=== PATIENT | female | born 1960 | race Caucasian/White ===

== ENCOUNTER 2023-08-03 18:31 | Emergency (ER) | payer OTHER, SELFPAY ==
[2023-08-03] VITALS (17 sets, daily range): BP systolic 140–196; BP diastolic 72–95; PULSE 53–82; RESP 14–30; TEMP 36.6; O2SAT 96–100; BMI 20.1
--- NOTE | 2023-08-03 18:46 | DI.RAD.S_ITS ---
PROCEDURE: XR CHEST 1V INDICATIONS: chest pain TECHNIQUE: One view of the chest was acquired. COMPARISON: None. FINDINGS: Surgical changes and devices: None. Lungs and pleura: Hyperinflation consistent with COPD. Lungs are clear. No pleural effusions or pneumothorax. Mediastinum: Mediastinal contours appear normal. Heart size is normal. Bones and chest wall: No suspicious bony lesions. Overlying soft tissues appear unremarkable. IMPRESSION: 1. No acute cardiopulmonary disease. 2. COPD. Dictated by: Marci Fernandez M.D. on 08/03/2023 at 19:05 Approved by: Marci Fernandez M.D. on 08/03/2023 at 19:06
[2023-08-03 19:25] LABS: Add Manual Diff / Slide Review NO; Basophils Absolute Auto 100 /uL (0-100); Basophils Percent Auto 0.7 % (0-2); Eosinophils Absolute Auto 500 /uL (0-450); Eosinophils Percent Auto 6.6 % (2-4); Hematocrit 38.8 % (36-46); Hemoglobin 13.2 g/dL (12.0-16.0); Lymphocytes Absolute Auto 2400 /uL (1100-4500); Lymphocytes Percent Auto 32.9 % (25-40); Mean Corpuscular HGB Conc 34.1 % (30-36); Mean Corpuscular Hemoglobin 29.3 PG (26-34); Mean Corpuscular Volume 85.9 fL (80-100); Monocytes Absolute Auto 600 /uL (0-900); Monocytes Percent Auto 8.4 % (3-14); Neutrophils Absolute Auto 3800 /uL (1500-7000); Neutrophils Percent Auto 51.4 % (50-75); Platelet Count 218 X10^3/uL (150-400); Red Blood Cell Count 4.52 X10^6/uL (4.0-5.2); Red Cell Distribution Width 14.3 % (11.6-14.8); White Blood Cell Count 7.4 X10^3/uL (4.5-11.0)
[2023-08-03 19:27] LABS: INR 0.9 (0.9-1.3); Prothrombin Time 10.4 SECONDS (10.1-12.7)
[2023-08-03 19:29] LABS: PTT Partial Thromboplastin Tim 30 SECONDS (26-36)
--- NOTE | 2023-08-03 19:30 | PC.NURSE ---
pt was cooking tonight when she started having chest tightness across her chest pt has had this occur about 2 days before she took some asa and went to sleep then woke with the tightness gone. pt states the tightness has subsided at this time, she took 2 regular strength asa prior to arrival. pt also had some diaphoresis during this episode, denies any sob or radiation, no hx of heart problems, pt does take estrogen 3 times a week
[2023-08-03 19:35] LABS: Alanine Aminotransferase 21 IU/L (<35); Albumin Globulin Ratio 1.3 (1.0-2.8); Alkaline Phosphatase 65 U/L (38-126); Aspartate Aminotransferase 20 IU/L (14-36); BUN Creatinine Ratio 25.4 (6-22); Bilirubin Total 0.4 mg/dL (0.2-1.3); Blood Urea Nitrogen 18 mg/dL (7-17); Calcium 8.5 mg/dL (8.4-10.2); Carbon Dioxide 25 mmol/L (22-32); Chloride 103 mmol/L (98-107); Creatine Kinase 102 U/L (30-135); Estimated Glomerular Filt Rate > 60 mL/min (>60); Globulin 3.1 g/dL (1.7-4.1); Glucose 97 mg/dL (80-110); HEMOLYSIS < 15 (0-50); Lipase 192 U/L (23-300); Magnesium 2.1 mg/dL (1.6-2.3); Potassium 3.5 mmol/L (3.4-5.1); Sodium 136 mmol/L (137-145); Total Protein 7.1 g/dL (6.3-8.2)
--- NOTE | 2023-08-03 19:35 | PC.NURSE ---
EKG changes noted on the monitor, pt denies any cp or feelings of discomfort, repeat EKG ordered and Dr Shafer notified
--- NOTE | 2023-08-03 19:49 | ED_ITS ---
HPI - Chest Pain <Lorelei Shafer DO - Last Filed: 08/06/23 19:18> General Chief Complaint: Chest Pain Stated Complaint: chest pains/ arm pain/ BP 197/121 Time Seen by Provider: 08/03/23 19:49 Source: patient Mode of arrival: Ambulatory Limitations: no limitations Limitations: no limitations History of Present Illness HPI narrative: This is a 62-year-old female history of chest pressure that started about 20 minutes prior to arrival. She states it was across her chest, did not radiate elsewhere. No shortness of breath no nausea or vomiting she was little diaph oretic. She states she would a similar episode 3 or 4 nights ago woke her up in the middle of the night pressure across her chest lasted several hours she took aspirin and it eventually resolved. No syncope. No nausea or vomiting, no diarrhea constipation, no swelling of extremities. She would not been having similar symptoms in the past. She is on Prempro 3 times weekly orally their only medication. Prior surgery years ago for ovarian cyst. No known drug allergies. No tobacco, occasional alcohol, no illicit. Mom had mitral valve prolapse 5 or 6 years ago with repair and atrial fibrillation. No known cardiac events otherwise. No known cardiac history with siblings. Patient states chest pain has resolved at this time. Related Data Allergies Allergy/AdvReac Type Severity Reaction Status Date / Time No Known Drug Allergies Allergy Verified 08/03/23 18:46 Review of Systems <Lorelei Shafer DO - Last Filed: 08/06/23 19:18> Review of Systems ROS Unobtainable: All systems reviewed & are unremarkable except as noted in HPI and below Patient History <Lorelei Shafer DO - Last Filed: 08/06/23 19:18> Social History Smoking Status: Unknown if ever smoked Smoking Status: Unknown if ever smoked alcohol intake frequency: holidays/special occasions only Substance Use Type: does not use Exam <Lorelei Shafer DO - Last Filed: 08/06/23 19:18> Narrative Exam Narrative: GENERAL: Alert and oriented x three, thin, well-appearing female in no acute distress. HEENT: Head normocephalic, atraumatic, EOMI, pupils reactive, face symmetric, moist mucous membranes NECK: Supple, full range of motion CARDIOVASCULAR: Regular rate and rhythm without murmurs, rubs or gallops. No JVD. No swelling bilateral lower extremities. RESPIRATORY: Breath sounds equal bilaterally, no wheezes rales or rhonchi. No tachypnea or accessory muscle use. ABDOMEN: Soft, nontender. Normoactive bowel sounds all 4 quadrants. No guarding or rebound, rigidity, no mass : No CVA tenderness EXTREMITIES: Normal range of motion, no clubbing or edema. Neurovascularly intact NEUROLOGICAL: Cranial nerves II through XII grossly intact. Moving all extremities SKIN: Warm, dry, no petechiae, no rashes or lesions. Initial Vital Signs Initial Vital Signs: Vital Signs Temperature 97.9 F 08/03/23 18:32 Pulse Rate 74 08/03/23 18:32 Respiratory Rate 14 08/03/23 18:32 Blood Pressure 192/93 H 08/03/23 18:32 Pulse Oximetry 99 08/03/23 18:32 Oxygen Delivery Method Room Air 08/03/23 18:32 <Lorelei Mendieta MD - Last Filed: 08/04/23 08:47> Initial Vital Signs Initial Vital Signs: Vital Signs Temperature 97.9 F 08/03/23 18:32 Pulse Rate 74 08/03/23 18:32 Respiratory Rate 14 08/03/23 18:32 Blood Pressure 192/93 H 08/03/23 18:32 Pulse Oximetry 99 08/03/23 18:32 Oxygen Delivery Method Room Air 08/03/23 18:32 Course <Lorelei Shafer DO - Last Filed: 08/06/23 19:18> Orders Ordered: Discontinued Medications Aspirin (Aspirin 81 Mg Chew Tab) 324 mg PO NOW ONE Stop: 08/03/23 18:47 Last Admin: 08/03/23 18:55 Dose: Not Given Documented By: KAT Atorvastatin Calcium (Atorvastatin 20 Mg Tablet) 80 mg PO NOW ONE Stop: 08/03/23 20:18 Last Admin: 08/03/23 20:31 Dose: 80 mg Documented By: DARVIN Heparin Sodium (Porcine) (Heparin 5,000 Unit/Ml Vial) 4,000 unit IV NOW ONE Stop: 08/03/23 19:53 Last Admin: 08/03/23 20:06 Dose: 4,000 unit Documented By: DARVIN Heparin Sodium/Dextrose (Heparin Drip) 25,000 unit in 500 mls @ 20 mls/hr IV CONT REGINO; Protocol Last Admin: 08/03/23 20:19 Dose: Not Given Documented By: KAT Heparin Sodium/Dextrose (Heparin Drip) 25,000 unit in 500 mls @ 13.608 mls/hr IV CONT REGINO; Protocol Last Titration: 08/04/23 09:00 Dose: 0 units/kg/hr, 0 mls/hr Documented By: RB Co-signed By: MPO Admin: 08/03/23 20:20 Dose: 12 units/kg/hr, 13.608 mls/hr Documented By: DARVIN Co-signed By: AYANNA Metoprolol Succinate (Metoprolol Er 25 Mg Tablet) 12.5 mg PO DAILY REGINO Metoprolol Succinate (Metoprolol Er 25 Mg Tablet) 12.5 mg PO NOW ONE Stop: 08/03/23 20:21 Last Admin: 08/03/23 20:31 Dose: 12.5 mg Documented By: DARVIN Vital Signs Vital signs: Vital Signs - 8 hr 08/04/23 01:00 08/04/23 01:00 08/04/23 01:30 Pulse Rate 48 L Respiratory Rate 12 Blood Pressure 140/79 151/85 H Pulse Oximetry 96 08/04/23 01:30 08/04/23 02:00 08/04/23 02:00 Pulse Rate 51 L 53 L Respiratory Rate 23 14 Blood Pressure 132/70 Pulse Oximetry 99 95 08/04/23 02:30 08/04/23 02:32 08/04/23 02:32 Pulse Rate 80 70 Respiratory Rate 35 H 28 H Blood Pressure 144/87 H Pulse Oximetry 98 08/04/23 03:00 08/04/23 03:00 08/04/23 03:30 Pulse Rate 57 L Respiratory Rate 20 Blood Pressure 139/76 137/75 Pulse Oximetry 96 08/04/23 03:30 08/04/23 04:00 08/04/23 04:00 Pulse Rate 44 L 55 L Respiratory Rate 14 18 Blood Pressure 127/86 Pulse Oximetry 96 95 08/04/23 04:30 08/04/23 04:30 08/04/23 05:00 Pulse Rate 44 L Respiratory Rate 13 Blood Pressure 141/80 H 140/78 Pulse Oximetry 97 08/04/23 05:00 Pulse Rate 46 L Respiratory Rate 13 Blood Pressure Pulse Oximetry 97 <Lorelei A Anam, MD - Last Filed: 08/04/23 08:47> Orders Ordered: Discontinued Medications Aspirin (Aspirin 81 Mg Chew Tab) 324 mg PO NOW ONE Stop: 08/03/23 18:47 Last Admin: 08/03/23 18:55 Dose: Not Given Documented By: KAT Atorvastatin Calcium (Atorvastatin 20 Mg Tablet) 80 mg PO NOW ONE Stop: 08/03/23 20:18 Last Admin: 08/03/23 20:31 Dose: 80 mg Documented By: DARVIN Heparin Sodium (Porcine) (Heparin 5,000 Unit/Ml Vial) 4,000 unit IV NOW ONE Stop: 08/03/23 19:53 Last Admin: 08/03/23 20:06 Dose: 4,000 unit Documented By: DARVIN Heparin Sodium/Dextrose (Heparin Drip) 25,000 unit in 500 mls @ 20 mls/hr IV CONT REGINO; Protocol Last Admin: 08/03/23 20:19 Dose: Not Given Documented By: KAT Heparin Sodium/Dextrose (Heparin Drip) 25,000 unit in 500 mls @ 13.608 mls/hr IV CONT REGINO; Protocol Last Titration: 08/04/23 09:00 Dose: 0 units/kg/hr, 0 mls/hr Documented By: ANA Co-signed By: MPO Admin: 08/03/23 20:20 Dose: 12 units/kg/hr, 13.608 mls/hr Documented By: DARVIN Co-signed By: AYANNA Metoprolol Succinate (Metoprolol Er 25 Mg Tablet) 12.5 mg PO DAILY [facility] Metoprolol Succinate (Metoprolol Er 25 Mg Tablet) 12.5 mg PO NOW ONE Stop: 08/03/23 20:21 Last Admin: 08/03/23 20:31 Dose: 12.5 mg Documented By: DARVIN Vital Signs Vital signs: Vital Signs - 8 hr 08/04/23 01:00 08/04/23 01:00 08/04/23 01:30 Pulse Rate 48 L Respiratory Rate 12 Blood Pressure 140/79 151/85 H Pulse Oximetry 96 08/04/23 01:30 08/04/23 02:00 08/04/23 02:00 Pulse Rate 51 L 53 L Respiratory Rate 23 14 Blood Pressure 132/70 Pulse Oximetry 99 95 08/04/23 02:30 08/04/23 02:32 08/04/23 02:32 Pulse Rate 80 70 Respiratory Rate 35 H 28 H Blood Pressure 144/87 H Pulse Oximetry 98 08/04/23 03:00 08/04/23 03:00 08/04/23 03:30 Pulse Rate 57 L Respiratory Rate 20 Blood Pressure 139/76 137/75 Pulse Oximetry 96 08/04/23 03:30 08/04/23 04:00 08/04/23 04:00 Pulse Rate 44 L 55 L Respiratory Rate 14 18 Blood Pressure 127/86 Pulse Oximetry 96 95 08/04/23 04:30 08/04/23 04:30 08/04/23 05:00 Pulse Rate 44 L Respiratory Rate 13 Blood Pressure 141/80 H 140/78 Pulse Oximetry 97 08/04/23 05:00 Pulse Rate 46 L Respiratory Rate 13 Blood Pressure Pulse Oximetry 97 MDM - Chest Pain <Lorelei Shafer, - Last Filed: 08/06/23 19:18> Lab Data 08/04/23 05:18 08/03/23 19:08 Labs: Lab Results 08/03/23 08/03/23 08/03/23 Range/Units 19:08 19:08 19:08 WBC 7.4 (4.5-11.0) X10^3/uL RBC 4.52 (4.0-5.2) X10^6/uL Hgb 13.2 (12.0-16.0) g/dL Hct 38.8 (36-46) % MCV 85.9 (80-100) fL MCH 29.3 (26-34) PG MCHC 34.1 (30-36) % RDW 14.3 (11.6-14.8) % Plt Count 218 (150-400) X10^3/uL Neut % (Auto) 51.4 (50-75) % Lymph % (Auto) 32.9 (25-40) % [place] % (Auto) 8.4 (3-14) % Eos % (Auto) 6.6 H (2-4) % Baso % (Auto) 0.7 (0-2) % Neut # (Auto) 3800 (8941-1552) /uL Lymph # (Auto) 2400 (0509-3108) /uL [place] # (Auto) 600 (0-900) /uL Eos # (Auto) 500 H (0-450) /uL Baso # (Auto) 100 (0-100) /uL PT 10.4 (10.1-12.7) SECONDS INR 0.9 (0.9-1.3) APTT 30 (26-36) SECONDS Sodium 136 L (137-145) mmol/L Potassium 3.5 (3.4-5.1) mmol/L Chloride 103 (98-107) mmol/L Carbon Dioxide 25 (22-32) mmol/L BUN 18 H (7-17) mg/dL Creatinine 0.71 (0.52-1.04) mg/dL Estimated GFR > 60 (>60) mL/min BUN/Creatinine Ratio 25.4 H (6-22) Glucose 97 (80-110) mg/dL Calcium 8.5 (8.4-10.2) mg/dL Magnesium 2.1 (1.6-2.3) mg/dL Total Bilirubin 0.4 (0.2-1.3) mg/dL AST 20 (14-36) IU/L ALT 21 (<35) IU/L Alkaline Phosphatase 65 (38-126) U/L Total Creatine Kinase 102 (30-135) U/L Troponin I 1.040 H* (0.01-0.034) ng/mL NT-Pro-B Natriuret Pep (<125) pg/mL Total Protein 7.1 (6.3-8.2) g/dL Albumin 4.0 (3.5-5.0) g/dL Globulin 3.1 (1.7-4.1) g/dL Albumin/Globulin Ratio 1.3 (1.0-2.8) Lipase 192 (23-300) U/L 08/03/23 08/03/23 08/04/23 Range/Units 19:08 22:05 02:27 WBC (4.5-11.0) X10^3/uL RBC (4.0-5.2) X10^6/uL Hgb (12.0-16.0) g/dL Hct (36-46) % MCV (80-100) fL MCH (26-34) PG MCHC (30-36) % RDW (11.6-14.8) % Plt Count (150-400) X10^3/uL Neut % (Auto) (50-75) % Lymph % (Auto) (25-40) % [place] % (Auto) (3-14) % Eos % (Auto) (2-4) % Baso % (Auto) (0-2) % Neut # (Auto) (3907-5008) /uL Lymph # (Auto) (5101-8736) /uL [place] # (Auto) (0-900) /uL Eos # (Auto) (0-450) /uL Baso # (Auto) (0-100) /uL PT (10.1-12.7) SECONDS INR (0.9-1.3) APTT 92 H* D (26-36) SECONDS Sodium (137-145) mmol/L Potassium (3.4-5.1) mmol/L Chloride (98-107) mmol/L Carbon Dioxide (22-32) mmol/L BUN (7-17) mg/dL Creatinine (0.52-1.04) mg/dL Estimated GFR (>60) mL/min BUN/Creatinine Ratio (6-22) Glucose (80-110) mg/dL Calcium (8.4-10.2) mg/dL Magnesium (1.6-2.3) mg/dL Total Bilirubin (0.2-1.3) mg/dL AST (14-36) IU/L ALT (<35) IU/L Alkaline Phosphatase (38-126) U/L Total Creatine Kinase (30-135) U/L Troponin I 2.430 H* (0.01-0.034) ng/mL NT-Pro-B Natriuret Pep 887 H (<125) pg/mL Total Protein (6.3-8.2) g/dL Albumin (3.5-5.0) g/dL Globulin (1.7-4.1) g/dL Albumin/Globulin Ratio (1.0-2.8) Lipase (23-300) U/L 08/04/23 08/04/23 08/04/23 Range/Units 04:23 05:18 08:10 WBC (4.5-11.0) X10^3/uL RBC (4.0-5.2) X10^6/uL Hgb 13.4 (12.0-16.0) g/dL Hct 39.7 (36-46) % MCV (80-100) fL MCH (26-34) PG MCHC (30-36) % RDW (11.6-14.8) % Plt Count 215 (150-400) X10^3/uL Neut % (Auto) (50-75) % Lymph % (Auto) (25-40) % [place] % (Auto) (3-14) % Eos % (Auto) (2-4) % Baso % (Auto) (0-2) % Neut # (Auto) (9265-8186) /uL Lymph # (Auto) (5765-8831) /uL [place] # (Auto) (0-900) /uL Eos # (Auto) (0-450) /uL Baso # (Auto) (0-100) /uL PT (10.1-12.7) SECONDS INR (0.9-1.3) APTT 68 H D (26-36) SECONDS Sodium (137-145) mmol/L Potassium (3.4-5.1) mmol/L Chloride (98-107) mmol/L Carbon Dioxide (22-32) mmol/L BUN (7-17) mg/dL Creatinine (0.52-1.04) mg/dL Estimated GFR (>60) mL/min BUN/Creatinine Ratio (6-22) Glucose (80-110) mg/dL Calcium (8.4-10.2) mg/dL Magnesium (1.6-2.3) mg/dL Total Bilirubin (0.2-1.3) mg/dL AST (14-36) IU/L ALT (<35) IU/L Alkaline Phosphatase (38-126) U/L Total Creatine Kinase (30-135) U/L Troponin I 2.380 H* (0.01-0.034) ng/mL NT-Pro-B Natriuret Pep (<125) pg/mL Total Protein (6.3-8.2) g/dL Albumin (3.5-5.0) g/dL Globulin (1.7-4.1) g/dL Albumin/Globulin Ratio (1.0-2.8) Lipase (23-300) U/L Imaging Data Chest x-ray: Radiologist's Impression: [address] [address] XRay Report Signed Patient: Shahrzad Angeles MR#: [id number] : 1960 Acct:[id number] Age/Sex: 62 / F Date of Service: 08/03/23 Loc: ED Accession Number: [id number] ?? Procedure: XR chest 1V Ordering Provider: Lorelei Shafer D.O. PROCEDURE:? XR CHEST 1V ? INDICATIONS:? chest pain ? TECHNIQUE:? One view of the chest was acquired.? ? COMPARISON:? None. ? FINDINGS:? ? Surgical changes and devices:? None.? ? Lungs and pleura:? Hyperinflation consistent with COPD.? Lungs are clear.? No pleural effusions or pneumothorax.? ? Mediastinum:? Mediastinal contours appear normal.? Heart size is normal.? ? Bones and chest wall:? No suspicious bony lesions.? Overlying soft tissues appear unremarkable.? ? ? IMPRESSION:? ? 1. No acute cardiopulmonary disease. 2. COPD.? ? Dictated by: Marci Fernandez M.D. on 08/03/2023 at 19:05 ? ? Approved by: Marci Fernandez M.D. on 08/03/2023 at 19:06?? CT scan - chest: Radiologist's Impression: Close Chest CTA (Signed) David Hudson - 08/03/23 Chest X-Ray (Signed) Marci Fernandez - 08/03/23 Launch?[place] [address] CT Scan Report Signed Patient: Shahrzad Angeles MR#: [id number] : 1960 Acct:[id number] Age/Sex: 62 / F Date of Service: 08/03/23 Loc: ED Accession Number: [id number] ?? Procedure: CT angio chest PE protocol Ordering Provider: Lorelei Shafer D.O. PROCEDURE:? CT ANGIO CHEST PE PROTOCOL ? INDICATIONS:? NSTEMI, on estrogen ? TECHNIQUE:? After the administration of intravenous contrast, 2 mm thick sections acquired from the pulmonary apices to the posterior costophrenic angles.? 3-dimensional maximum intensity projection (MIP) coronal and sagittal reformats were then acquired through the thorax.? For radiation dose reduction, the following was used:? automated exposure contr ol, adjustment of mA and/or kV according to patient size.? ? COMPARISON:? [facility], CR, XR CHEST 1V, 08/03/2023, 18:46. ? FINDINGS:? Image quality:? Excellent.? ? Pulmonary arteries:? Pulmonary arteries are normal in size, and demonstrate no intraluminal filling defects to suggest central pulmonary embolism.? ? Lungs and pleura:? There is biapical scarring.? No acute airspace opacities.? Dependent atelectasis in posterior and lateral periphery of bilateral lung bases are seen.? No pleural effusions or pneumothorax.? Central and peripheral airways are patent.? ? Mediastinum:? Heart size is mildly enlarged, without pericardial effusion.? No mediastinal or hilar adenopathy.? Thoracic aorta is normal in caliber and enhancement.? Esophagus is normal in caliber, without hiatal hernia.? ? Bones and chest wall:? No suspicious bony lesions.? Ribs and thoracic spine appear intact throughout.? Thyroid gland is within normal limits.? No axillary or supraclavicular adenopathy.? ? Abdomen:? 9 mm hyperdense nodule in posterior lateral cortex of midpole left kidney is seen series 511 image 142.? The visualized portion of liver, spleen, pancreas and bilateral adrenal glands shows no gross abnormality. ? IMPRESSION:? ? 1.? No evidence of pulmonary emboli.? No thoracic aortic aneurysm or gross dissection. ? 2. Scattered atelectasis and scarring in periphery of bilateral lung medina.? No focal infiltrate, pleural effusion or pneumothorax.? Airway is patent. ? 3. Mild cardiomegaly, no pericardial effusion.? No mediastinal or hilar lymphadenopathy by size criteria. ? 4. Incidentally noted of 9 mm hyperdense area involving left kidney.? Outpatient follow-up with renal ultrasound is recommended. ? ? Dictated by: David Hudson M.D. on 08/03/2023 at 20:43 ? ? Approved by: David Hudson M.D. on 08/03/2023 at 20:51?? ECG Data Attestation: I personally reviewed and interpreted this ECG as follows: Prior ECG tracings: not available for review Interpretation: Sinus rhythm with marked sinus arrhythmia rate of 61 NC 108 QRS 84 QTC of 430. No acute ST elevation. Sinus rhythm rightward axis, rate of 64 NC 116 QRS 84 QTC 433. Patient does appear to have developing ST depression in 3 AVF and V4 5 and 6. EKG 3 shows sinus rhythm frequent PVC, patient does not not appear to have any new elevation but does have persistent depression. Patient has had several runs of wide complex but rate of 059, appears to be AVF and RT likely irritability from patient's cardiac event.. 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 Patient's initial EKG did not show acute changes but patient shows new depression that is evolving but no new elevation. Patient's initial labs CBC, CMP electrolytes are all appropriate. Initial troponin is 1.04, BNP is added on. Patient is on oral estrogen so CT angio was obtained. Patient was started on heparin drip for NSTEMI protocol while awaiting imaging. Consultation with Cardiology, Dr. Montes at [facility] agrees with plan with heparin, hold off on nitro of chest pain-free would recommend Toprol XL 12.5 mg daily, statin and transfer for heart catheterization. CT angio does not show any obvious pulmonary emboli, was obtained secondary to patient's oral estrogen. No obvious vascular changes, patient does have some cardiomegaly. Nodular lesion on the kidney that needs follow-up outpatient. [facility] does not have any hospitalist, called out to several facilities for potential transfer. Attempted multiple facilities in the region, [facility], [place], [facility], [facility], etc.. Spoke with Dr. Gibson, [facility] cardiology who accepts for transfer agrees with current plan and medical treatment. Discussed up to this point patient has not had any persistent chest pain or pressure. Does have trending upwards troponin from 1-2.04 Dr. Handley, hospitalist accepts for transfer to [facility]. <Lorelei Mendieta MD - Last Filed: 08/04/23 08:47> Lab Data Labs: Lab Results 08/03/23 08/03/23 08/03/23 Range/Units 19:08 19:08 19:08 WBC 7.4 (4.5-11.0) X10^3/uL RBC 4.52 (4.0-5.2) X10^6/uL Hgb 13.2 (12.0-16.0) g/dL Hct 38.8 (36-46) % MCV 85.9 (80-100) fL MCH 29.3 (26-34) PG MCHC 34.1 (30-36) % RDW 14.3 (11.6-14.8) % Plt Count 218 (150-400) X10^3/uL Neut % (Auto) 51.4 (50-75) % Lymph % (Auto) 32.9 (25-40) % [place] % (Auto) 8.4 (3-14) % Eos % (Auto) 6.6 H (2-4) % Baso % (Auto) 0.7 (0-2) % Neut # (Auto) 3800 (2856-7355) /uL Lymph # (Auto) 2400 (0079-8476) /uL [place] # (Auto) 600 (0-900) /uL Eos # (Auto) 500 H (0-450) /uL Baso # (Auto) 100 (0-100) /uL PT 10.4 (10.1-12.7) SECONDS INR 0.9 (0.9-1.3) APTT 30 (26-36) SECONDS Sodium 136 L (137-145) mmol/L Potassium 3.5 (3.4-5.1) mmol/L Chloride 103 (98-107) mmol/L Carbon Dioxide 25 (22-32) mmol/L BUN 18 H (7-17) mg/dL Creatinine 0.71 (0.52-1.04) mg/dL Estimated GFR > 60 (>60) mL/min BUN/Creatinine Ratio 25.4 H (6-22) Glucose 97 (80-110) mg/dL Calcium 8.5 (8.4-10.2) mg/dL Magnesium 2.1 (1.6-2.3) mg/dL Total Bilirubin 0.4 (0.2-1.3) mg/dL AST 20 (14-36) IU/L ALT 21 (<35) IU/L Alkaline Phosphatase 65 (38-126) U/L Total Creatine Kinase 102 (30-135) U/L Troponin I 1.040 H* (0.01-0.034) ng/mL NT-Pro-B Natriuret Pep (<125) pg/mL Total Protein 7.1 (6.3-8.2) g/dL Albumin 4.0 (3.5-5.0) g/dL Globulin 3.1 (1.7-4.1) g/dL Albumin/Globulin Ratio 1.3 (1.0-2.8) Lipase 192 (23-300) U/L 08/03/23 08/03/23 08/04/23 Range/Units 19:08 22:05 02:27 WBC (4.5-11.0) X10^3/uL RBC (4.0-5.2) X10^6/uL Hgb (12.0-16.0) g/dL Hct (36-46) % MCV (80-100) fL MCH (26-34) PG MCHC (30-36) % RDW (11.6-14.8) % Plt Count (150-400) X10^3/uL Neut % (Auto) (50-75) % Lymph % (Auto) (25-40) % [place] % (Auto) (3-14) % Eos % (Auto) (2-4) % Baso % (Auto) (0-2) % Neut # (Auto) (4715-5467) /uL Lymph # (Auto) (4124-1167) /uL [place] # (Auto) (0-900) /uL Eos # (Auto) (0-450) /uL Baso # (Auto) (0-100) /uL PT (10.1-12.7) SECONDS INR (0.9-1.3) APTT 92 H* D (26-36) SECONDS Sodium (137-145) mmol/L Potassium (3.4-5.1) mmol/L Chloride (98-107) mmol/L Carbon Dioxide (22-32) mmol/L BUN (7-17) mg/dL Creatinine (0.52-1.04) mg/dL Estimated GFR (>60) mL/min BUN/Creatinine Ratio (6-22) Glucose (80-110) mg/dL Calcium (8.4-10.2) mg/dL Magnesium (1.6-2.3) mg/dL Total Bilirubin (0.2-1.3) mg/dL AST (14-36) IU/L ALT (<35) IU/L Alkaline Phosphatase (38-126) U/L Total Creatine Kinase (30-135) U/L Troponin I 2.430 H* (0.01-0.034) ng/mL NT-Pro-B Natriuret Pep 887 H (<125) pg/mL Total Protein (6.3-8.2) g/dL Albumin (3.5-5.0) g/dL Globulin (1.7-4.1) g/dL Albumin/Globulin Ratio (1.0-2.8) Lipase (23-300) U/L 08/04/23 08/04/23 08/04/23 Range/Units 04:23 05:18 08:10 WBC (4.5-11.0) X10^3/uL RBC (4.0-5.2) X10^6/uL Hgb 13.4 (12.0-16.0) g/dL Hct 39.7 (36-46) % MCV (80-100) fL MCH (26-34) PG MCHC (30-36) % RDW (11.6-14.8) % Plt Count 215 (150-400) X10^3/uL Neut % (Auto) (50-75) % Lymph % (Auto) (25-40) % [place] % (Auto) (3-14) % Eos % (Auto) (2-4) % Baso % (Auto) (0-2) % Neut # (Auto) (5833-1137) /uL Lymph # (Auto) (0857-0896) /uL [place] # (Auto) (0-900) /uL Eos # (Auto) (0-450) /uL Baso # (Auto) (0-100) /uL PT (10.1-12.7) SECONDS INR (0.9-1.3) APTT 68 H D (26-36) SECONDS Sodium (137-145) mmol/L Potassium (3.4-5.1) mmol/L Chloride (98-107) mmol/L Carbon Dioxide (22-32) mmol/L BUN (7-17) mg/dL Creatinine (0.52-1.04) mg/dL Estimated GFR (>60) mL/min BUN/Creatinine Ratio (6-22) Glucose (80-110) mg/dL Calcium (8.4-10.2) mg/dL Magnesium (1.6-2.3) mg/dL Total Bilirubin (0.2-1.3) mg/dL AST (14-36) IU/L ALT (<35) IU/L Alkaline Phosphatase (38-126) U/L Total Creatine Kinase (30-135) U/L Troponin I 2.380 H* (0.01-0.034) ng/mL NT-Pro-B Natriuret Pep (<125) pg/mL Total Protein (6.3-8.2) g/dL Albumin (3.5-5.0) g/dL Globulin (1.7-4.1) g/dL Albumin/Globulin Ratio (1.0-2.8) Lipase (23-300) U/L MDM Narrative Medical decision making narrative: 62-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 Patient's initial EKG did not show acute changes but patient shows new depression that is evolving but no new elevation. Patient's initial labs CBC, CMP electrolytes are all appropriate. Initial troponin is 1.04, BNP is added on. Patient is on oral estrogen so CT angio was obtained. Patient was started on heparin drip for NSTEMI protocol while awaiting imaging. Consultation with Cardiology, Dr. Montes at [facility] agrees with plan with heparin, hold off on nitro of chest pain-free would recommend Toprol XL 12.5 mg daily, statin and transfer for heart catheterization. CT angio does not show any obvious pulmonary emboli, was obtained secondary to patient's oral estrogen. No obvious vascular changes, patient does have some cardiomegaly. Nodular lesion on the kidney that needs follow-up outpatient. [facility] does not have any hospitalist, called out to several facilities for potential transfer. Attempted multiple facilities in the region, [facility], [place], [facility], [facility], etc.. Spoke with Dr. Gibson, [facility] cardiology who accepts for transfer agrees with current plan and medical treatment. Discussed up to this point patient has not had any persistent chest pain or pressure. Does have trending upwards troponin from 1-2.04 Dr. Handley, hospitalist accepts for transfer to [facility]. 08/04/23 Dr. Mendieta - 0845 - bed available. Patient transported in stable condition to accepting hospital. Critical Care Time <Lorelei Shafer DO - Last Filed: 08/06/23 19:18> Critical Care Time Attestation: The high probability of a clinically significant, sudden or life threatening deterioration of the [cardiac, pulm] system(s) required my full and direct attention, intervention and personal management. The aggregate critical care time was [] minutes. This time is in addition to time spent performing reported procedures but includes the following: [x] Data Review and interpretation [x] Patient assessment and monitoring of vital signs [x] Documentation [x] Medication orders and management Discharge Plan Departure Patient Disposition: [facility] Clinical Impression: Non-ST elevation [facility] (NSTEMI), Cardiac arrhythmia Referrals: Miscellaneous,[facility] [Primary Care Provider] -
--- NOTE | 2023-08-03 20:02 | DI.CT.S_ITS ---
PROCEDURE: CT ANGIO CHEST PE PROTOCOL INDICATIONS: NSTEMI, on estrogen TECHNIQUE: After the administration of intravenous contrast, 2 mm thick sections acquired from the pulmonary apices to the posterior costophrenic angles. 3-dimensional maximum intensity projection (MIP) coronal and sagittal reformats were then acquired through the thorax. For radiation dose reduction, the following was used: automated exposure control, adjustment of mA and/or kV according to patient size. COMPARISON: [facility], CR, XR CHEST 1V, 08/03/2023, 18:46. FINDINGS: Image quality: Excellent. Pulmonary arteries: Pulmonary arteries are normal in size, and demonstrate no intraluminal filling defects to suggest central pulmonary embolism. Lungs and pleura: There is biapical scarring. No acute airspace opacities. Dependent atelectasis in posterior and lateral periphery of bilateral lung bases are seen. No pleural effusions or pneumothorax. Central and peripheral airways are patent. Mediastinum: Heart size is mildly enlarged, without pericardial effusion. No mediastinal or hilar adenopathy. Thoracic aorta is normal in caliber and enhancement. Esophagus is normal in caliber, without hiatal hernia. Bones and chest wall: No suspicious bony lesions. Ribs and thoracic spine appear intact throughout. Thyroid gland is within normal limits. No axillary or supraclavicular adenopathy. Abdomen: 9 mm hyperdense nodule in posterior lateral cortex of midpole left kidney is seen series 511 image 142. The visualized portion of liver, spleen, pancreas and bilateral adrenal glands shows no gross abnormality. IMPRESSION: 1. No evidence of pulmonary emboli. No thoracic aortic aneurysm or gross dissection. 2. Scattered atelectasis and scarring in periphery of bilateral lung medina. No focal infiltrate, pleural effusion or pneumothorax. Airway is patent. 3. Mild cardiomegaly, no pericardial effusion. No mediastinal or hilar lymphadenopathy by size criteria. 4. Incidentally noted of 9 mm hyperdense area involving left kidney. Outpatient follow-up with renal ultrasound is recommended. Dictated by: David Hudson M.D. on 08/03/2023 at 20:43 Approved by: David Hudson M.D. on 08/03/2023 at 20:51
[2023-08-03] MEDS: HEPARIN 5,000 UNIT/ML VIAL 4000 UNIT IV (20:06)
[2023-08-03] MEDS: HEPARIN DRIP 25,000 UNIT/500 ML IV.SOLN 13.608 UNIT IV (20:20)
[2023-08-03 20:25] LABS: NT-proBNP (BNP-Adult 18+) 887 pg/mL (<125)
[2023-08-03] MEDS: ATORVASTATIN 20 MG TABLET 80 MG PO (20:31)
[2023-08-03] MEDS: METOPROLOL ER 25 MG TABLET 12.5 MG PO (20:31)
[2023-08-04] VITALS (20 sets, daily range): BP systolic 127–174; BP diastolic 70–93; PULSE 44–80; RESP 12–35; TEMP 36.6; O2SAT 95–99
[2023-08-04 02:54] LABS: PTT Partial Thromboplastin Tim 92 SECONDS (26-36)
[2023-08-04 05:28] LABS: Hematocrit 39.7 % (36-46); Hemoglobin 13.4 g/dL (12.0-16.0); Platelet Count 215 X10^3/uL (150-400)
--- NOTE | 2023-08-04 06:47 | PC.NURSE ---
Pt is currently accepted at [facility] still waiting on bed assignment [facility] will f/u after shift change in the am 08/04/23. will also c/b after shift change with a possibility for an available bed. Pt is also on list with [facility]
[2023-08-04 08:29] LABS: PTT Partial Thromboplastin Tim 68 SECONDS (26-36)
--- NOTE | 2023-08-04 09:25 | PC.NURSE ---
This RN gave patient report to JUDY Inman from [facility]. This RN gave report to JUDY Hernandez at [facility]. This RN gave both parties this ED phone number for any followup questions.
== END 2023-08-04 09:00 | disposition short-term general hospital (02) ==
PROVIDERS: Emergency Provider Emergency Medicine
DX: I21.4 Non-ST elevation (NSTEMI) myocardial infarction (principal); I49.9 Cardiac arrhythmia, unspecified
CPT/HCPCS: 36415; 71045; 71275; 80053; 82550; 83690; 83735; 83880; 84484; 85014; 85018; 85025; 85049; 85610; 85730; 93005; 96365; 96366; 96375; 99284; 99291; J1644; Q9967

== ENCOUNTER → 2023-10-16 06:57 | Outpatient (CLI) | payer OTHER, SELFPAY ==
[2023-10-16 08:12] LABS: Cholesterol 142 mg/dL (140-199); HDL Cholesterol 75 mg/dL (40-60); LDL Cholesterol Calculated 54 mg/dL (<100); Triglycerides 63 mg/dL (35-150)
== END ==
PROVIDERS: PCP Student in an Organized Health Care Education/Training Program; Referring Provider Student in an Organized Health Care Education/Training Program; Visit Provider Student in an Organized Health Care Education/Training Program
DX: I25.2 Old myocardial infarction (principal)
CPT/HCPCS: 36415; 80061

== ENCOUNTER → 2023-10-17 15:03 | Outpatient (CLI) | payer OTHER, SELFPAY ==
--- NOTE | 2023-10-17 15:04 | DI.US.S_ITS ---
PROCEDURE: US RENAL COMPLETE INDICATIONS: 9 MM MASS OF LEFT KIDNEY TECHNIQUE: Real-time scanning was performed of the kidneys and bladder, with image documentation. COMPARISON: [facility], CT, CT ANGIO CHEST PE PROTOCOL, 08/03/2023, 20:20. FINDINGS: Kidneys: Kidneys are normal in size. Right kidney measures 10.9 cm long; left kidney measures 10.6 cm long. Right renal cortical thickness is 1.3 cm; left renal cortical thickness is 1.2 cm. Renal cortical echotexture is normal. No hydronephrosis or nephrolithiasis. There is a hypoechoic 8 mm exophytic mass or cyst off the upper pole of the left kidney. Bladder: Pre-void bladder volume is 140.4 mL. Post-void residual is 13.4 mL. Pre-void images demonstrate no intraluminal masses or stones. On pre-void images, bilateral ureteral jets are noted with color Doppler interrogation. (Of note, ureteral jets may not be detectable in up to 25% of cases due to insufficient differences in specific gravity between ureteral and bladder urine). Miscellaneous: No free pelvic fluid. IMPRESSION: 1. 8 mm mass or complicated cyst off the upper pole of the left kidney. This likely corresponds with the partially characterized lesion on the comparison CT dated August 03, 2023. Unfortunately, this is not well characterized by ultrasound. If further characterization is warranted, multiphase renal mass protocol CT or MRI could be used. Alternatively, short interval 3-6 month follow-up could be used to ensure stability of this finding. 2. Mild postvoid residual. Dictated by: Padmini Velez M.D. on 10/18/2023 at 15:17 Approved by: Padmini Velez M.D. on 10/18/2023 at 15:22
== END ==
PROVIDERS: PCP Student in an Organized Health Care Education/Training Program; Referring Provider Student in an Organized Health Care Education/Training Program; Visit Provider Student in an Organized Health Care Education/Training Program
DX: N28.9 Disorder of kidney and ureter, unspecified (principal); R68.89 Other general symptoms and signs
CPT/HCPCS: 76770

== ENCOUNTER → 2023-10-26 08:45 | Outpatient (CLI) | payer OTHER, SELFPAY ==
--- NOTE | 2023-10-26 08:46 | DI.MG.S_ITS ---
BILATERAL DIGITAL SCREENING MAMMOGRAM 3D/2D WITH CAD: 10/26/2023 CLINICAL: Routine screening. Family history of breast cancer. No prior exams were available for comparison. Both breasts are heterogeneously dense, which may obscure small masses (category c / 51-75% glandular tissue). Current study was also evaluated with a Computer Aided Detection (CAD) system. There is a biopsy clip in the left breast. No significant masses, calcifications, or other findings are seen in either breast. IMPRESSION: NEGATIVE There is no mammographic evidence of malignancy. A 1 year screening mammogram is recommended. Based on the Tyrer Cuzick model (a risk assessment model) the patient's lifetime risk is 16.3% and her 10 year risk is 7.3%. According to the ACR, ACS, and NCCN guidelines, an annual breast MRI exam along with mammogram is recommended if the patient's lifetime risk is 20% or greater. This exam was interpreted at Station ID: [id number]. NOTE: For mammograms, a report in lay terms will be sent to the patient. Approximately 15% of breast malignancies will not be visualized mammographically. In the management of a palpable breast mass, a negative mammogram must not discourage biopsy of a clinically suspicious lesion. Electronically Signed By: Aakash minor/verena:10/28/2023 07:15:00 letter sent: Normal Exam ACR BI-RADS Category 1: Negative [id number]
== END ==
PROVIDERS: PCP Student in an Organized Health Care Education/Training Program; Referring Provider Student in an Organized Health Care Education/Training Program; Visit Provider Student in an Organized Health Care Education/Training Program
DX: Z12.31 Encounter for screening mammogram for malignant neoplasm of breast (principal); Z80.3 Family history of malignant neoplasm of breast
CPT/HCPCS: 77063; 77067

== ENCOUNTER → 2023-11-06 09:57 | Outpatient (CLI) | payer OTHER, SELFPAY ==
--- NOTE | 2023-11-06 09:57 | DI.CT.S_ITS ---
PROCEDURE: CT ABDOMEN RENAL PROTOCOL INDICATIONS: f/u US kidney mass TECHNIQUE: Optional 5 mm thick noncontrast images acquired from the diaphragm to the iliac crests. After the administration of intravenous contrast, 5 mm thick images again acquired from the diaphragm to the iliac crests in the arterial and urographic phases. 5 mm thick coronal and sagittal reformats were then acquired. For radiation dose reduction, the following was used: automated exposure control, adjustment of mA and/or kV according to patient size. COMPARISON: [facility], CT, CT ANGIO CHEST PE PROTOCOL, 08/03/2023, 20:20. [facility], US, US RENAL COMPLETE, 10/17/2023, 15:51. FINDINGS: Image quality: Excellent. Lung bases: Lung bases are clear. Heart size is normal. Genitourinary: -Left kidney superior pole hyperdense cyst measuring 0.9 cm, (2/20), measures 91 Hounsfield units on the noncontrast series. No suspicious enhancement. -Left kidney exophytic inferior pole cyst measuring 1.3 cm, (2/36), measures 75 Hounsfield units on the noncontrast series. No suspicious enhancement. No solid renal mass. Additional low-density subcentimeter cyst in the left kidney, (7/100). No kidney stones. No hydronephrosis. Other solid organs: Liver is normal in size. Hypodense region in the right lobe of the liver, (2/16). On the postcontrast sequences there is heterogeneous enhancement at this site measuring 2.5 cm, (3/18). Hypodensity at the inferior right liver, (3/31). No convincing enhancement. Gallbladder is unremarkable. Biliary system is non dilated. Pancreas enhances normally. Spleen is normal in size and enhancement. No adrenal nodules. Peritoneum and bowel: Unenhanced bowel loops are normal in wall thickness and caliber. No free fluid or air. Nodes and vessels: No retroperitoneal or mesenteric adenopathy by size criteria. Aorta and inferior vena cava are normal in caliber. Bones: No suspicious bony lesions. No vertebral body compression fractures. Miscellaneous: No significant ventral hernias. IMPRESSION: 1. Small benign hyperdense cysts x2 in the left kidney. 2. Incidental heterogeneous enhancing focus in the right lobe of the liver measuring 2.5 cm. This is indeterminate. This could represent a hemangioma, adenoma, or FNH for example. This could be further characterized with liver MRI with IV contrast (prefer Eovist). Dictated by: Faisal Bolton M.D. on 11/06/2023 at 12:22 Approved by: Faisal Bolton M.D. on 11/06/2023 at 12:37
[2023-11-06 10:27] LABS: BUN Creatinine Ratio 23.8 (6-22); Blood Urea Nitrogen 19 mg/dL (7-17); Estimated Glomerular Filt Rate > 60 mL/min (>60)
== END ==
PROVIDERS: PCP Student in an Organized Health Care Education/Training Program; Referring Provider Student in an Organized Health Care Education/Training Program; Visit Provider Student in an Organized Health Care Education/Training Program
DX: Z01.812 Encounter for preprocedural laboratory examination (principal); N28.1 Cyst of kidney, acquired; N28.89 Other specified disorders of kidney and ureter; R68.89 Other general symptoms and signs
CPT/HCPCS: 36415; 74170; 82565; 84520; Q9967

== ENCOUNTER → 2023-11-21 08:44 | Outpatient (CLI) | payer OTHER, SELFPAY ==
--- NOTE | 2023-11-21 08:45 | DI.MRI.S_ITS ---
PROCEDURE: MR ABDOMEN LIVER PROTOCOL INDICATIONS: Hypodensity Right lobe of liver on CT scan TECHNIQUE: Coronal HASTE, axial 2D FLASH in- and [id number]; axial breath-hold T2 FSE. Dynamic axial VIBE during the administration of contrast; post-contrast coronal VIBE or 2D FLASH with fat saturation from the hepatic dome to the iliac crests. Restricted diffusion weighted imaging and ADC may be performed. 10 cc Eovist. COMPARISON: [facility], CT, CT ABDOMEN RENAL PROTOCOL, 11/06/2023, 10:51. FINDINGS: Image quality: Diagnostic. Lung bases: Unremarkable. Liver: Segment 7 enhancing lesion measuring 2.3 cm, (). There is intrinsic T1 hypointense signal, homogeneous arterial phase enhancement which is less prominent on the venous phase and does not persist on the delayed phase. No restricted diffusion. There is subtle T2 hyperintense signal. Segment 7/6 subcapsular enhancing lesion measuring 0.8 cm, (/49). Similar imaging features as the above-described lesion. A few small cysts. Gallbladder: Suspect gallbladder sludge. Biliary ducts: No biliary dilation. Pancreas: No ductal dilation. Spleen: Size is within normal limits. Adrenal Glands: No adrenal nodules. Kidneys and Ureters: No hydronephrosis. A small intrinsic T1 hyperintense left renal cysts consistent with proteinaceous/hemorrhagic cyst. Stomach and Bowel: Normal colonic caliber, without significant wall thickening. Peritoneum: No abnormal intraperitoneal fluid. No free air. Ventral Wall: No hernia. Abdominal Nodes: No retroperitoneal or mesenteric adenopathy by size criteria. Vessels: Aorta and inferior vena cava are normal in size. Bones: No aggressive osseous abnormality. IMPRESSION: 1. Segment 7 lesion measuring 2.3 cm. Imaging features most consistent with an adenoma. Segment 7/6 subcapsular lesion measuring 0.8 cm with similar imaging features. These do not have the typical imaging features of a hemangioma or FNH. 2. Small a proteinaceous/hemorrhagic cysts in the left kidney. Dictated by: Faisal Bolton M.D. on 11/21/2023 at 12:35 Approved by: Faisal Bolton M.D. on 11/21/2023 at 12:59
== END ==
PROVIDERS: PCP Student in an Organized Health Care Education/Training Program; Referring Provider Student in an Organized Health Care Education/Training Program; Visit Provider Student in an Organized Health Care Education/Training Program
DX: R16.0 Hepatomegaly, not elsewhere classified (principal); K76.9 Liver disease, unspecified; N28.1 Cyst of kidney, acquired
CPT/HCPCS: 74183

== ENCOUNTER 2024-01-07 12:49 | Day surgery (SDC) | payer OTHER, SELFPAY ==
[2024-01-07 13:06] VITALS: BP 141/84; PULSE 83; RESP 16; TEMP 36.8; O2SAT 100
[2024-01-07] MEDS: LACTATED RINGERS 1,000 ML 42 ML IV (13:15)
--- NOTE | 2024-01-07 13:51 | PM.HP.1 ---
History of Present Illness History of Present Illness Date Patient Seen: 01/07/24 Time Patient Seen: 13:51 Chief complaint: [facility] Narrative: 63-year-old woman here for screening colonoscopy. Last colonoscopy 10 years ago [facility]. No abdominal concerns today. Her father had a as history of malignant colonic polyp. [facility] Medical History Headache Chicken pox Endometriosis (~2006) Myocardial infarction (~2022) Surgical History Anesthesia History of coronary angiogram (~2022) Fibroids (~2006) Family History Mother History of heart disease Hypertension Social History Smoking Status: Unknown if ever smoked alcohol intake: current Meds Home Medications and Allergies Home Medications Medication Instructions Recorded Confirmed Type aspirin 81 mg tablet,delayed 81 mg PO DAILY 09/13/23 01/07/24 History release (Adult Aspirin Regimen) atorvastatin 40 mg tablet 40 mg PO BEDTIME 09/13/23 01/07/24 History conj estrogen-medroxyprogesterone 1 tab PO .3 times per week 09/13/23 01/07/24 History 0.3 mg-1.5 mg tablet (Prempro) losartan 50 mg tablet 50 mg PO .bed time 09/13/23 01/07/24 History nitroglycerin 0.4 mg sublingual 0.4 mg sublingual Q5M PRN Chest 09/13/23 01/07/24 History tablet Pain Allergies Allergy/AdvReac Type Severity Reaction Status Date / Time No Known Drug Allergies Allergy Verified 01/07/24 13:00 Exam Vital Signs (past 8 hours): - 01/07/24 13:06 Temperature 98.3 F Pulse Rate 83 Respiratory Rate 16 Blood Pressure 141/84 H Pulse Oximetry 100 Oxygen Delivery Method Room Air Oxygen Flow Rate 0 Oxygen Delivery Method Room Air Oxygen Flow Rate 0 Narrative Exam Narrative: General adult woman alert oriented no acute distress Chest nonlabored respiration Extremities warm well perfused Assessment & Plan Assessment & Plan narrative: The patient requires colorectal screening and colonoscopy is recommended. Technical details were discussed. Risks, benefits, alternatives explained. Risks including but not limited to myocardial infarction, aspiration, bleeding, pain, missed lesion, incomplete examination, need for further radiographic studies, colonic perforation, and need for major abdominal surgery were discussed. All questions were answered to their satisfaction, and they are in agreement with this plan.
--- NOTE | 2024-01-07 13:57 | P.OP.COLON_ITS ---
Operative Date/Time/Diagnoses Date of procedure: 01/07/24 Time of procedure: 13:57 Pre-op diagnosis: Colorectal screening Procedure & Clinicians Study performed: Colonoscopy Same procedure as scheduled: Yes Indications: Colorectal screening Surgeon: Colby Higginbotham Procedure Notes Procedure in detail: The history and physical was performed/updated and the patient is ASA class is 2. The procedure was discussed in detail with the patient. Potential risks complications including infection, bleeding, missed diagnosis, perforation, need for surgery, and were explained. Their questions were answered and informed consent was obtained. Patient was brought to the procedure room and placed standard monitoring equipment. The patient's vital signs were monitored continuously throughout the entire procedure. Prior to starting time-out was performed. The patient was placed in the left lateral recumbent position. Procedural sedation was administered by anesthesia. Examination began with a thorough inspection of the perianal area there was no evidence of fissures, fistulae, external hemorrhoids or cutaneous malignancy. The colonoscopy scope was then placed into the anal canal and was advanced to the cecum, which was identified by the ileocecal valve , the appendiceal orifice and the confluence of the taenia. The scope was then slowly withdrawn examining colon thoroughly in all directions, irrigating it of any residual stool. The scope was retroflexed within the rectum The patient tolerated the procedure well. They will be discharged once criteria are met. The prep was of good/excellent quality. The withdrawl time was 7 minutes. FINDINGS * Tortuous colon. No masses, polyps, inflammation Specimen(s): none sent Impression: Normal colonoscopy Post-procedure Recommendations: Colonoscopy in 10 years Disposition: same day surgery
[2024-01-07 14:30] VITALS: BP 115/74; PULSE 64; RESP 16; TEMP 36.1; O2SAT 8
[2024-01-07 14:34] VITALS: BP 121/70; PULSE 61; RESP 18; O2SAT 99
[2024-01-07 14:40] VITALS: BP 127/83; PULSE 62; RESP 16; O2SAT 99
[2024-01-07 14:42] VITALS: BP 134/72; PULSE 64; RESP 16; O2SAT 98
== END 2024-01-07 14:49 | disposition home or self-care (01) ==
PROVIDERS: PCP Student in an Organized Health Care Education/Training Program; Referring Provider Surgery; Visit Provider Surgery
PROC: 0DJD8ZZ Inspection of Lower Intestinal Tract, Via Natural or Artificial Opening Endoscopic (ICD-10-PCS; CPT 45378; principal; 2024-01-07 13:45)
DX: Z12.11 Encounter for screening for malignant neoplasm of colon (principal); Z80.0 Family history of malignant neoplasm of digestive organs
CPT/HCPCS: G0121; J2250; J2704

== ENCOUNTER → 2024-02-13 07:03 | Outpatient (CLI) | payer OTHER, SELFPAY ==
[2024-02-13 08:28] LABS: Alanine Aminotransferase 29 IU/L (<35); Albumin Globulin Ratio 1.3 (1.0-2.8); Alkaline Phosphatase 67 U/L (38-126); Aspartate Aminotransferase 21 IU/L (14-36); BUN Creatinine Ratio 26.3 (6-22); Bilirubin Total 0.9 mg/dL (0.2-1.3); Blood Urea Nitrogen 21 mg/dL (7-17); Calcium 9.4 mg/dL (8.4-10.2); Carbon Dioxide 28 mmol/L (22-32); Chloride 107 mmol/L (98-107); Cholesterol 144 mg/dL (140-199); Estimated Glomerular Filt Rate > 60 mL/min (>60); Glucose 100 mg/dL (80-110); HDL Cholesterol 82 mg/dL (40-60); HEMOLYSIS < 15 (0-50); LDL Cholesterol Calculated 46 mg/dL (<100); Potassium 4.1 mmol/L (3.4-5.1); Sodium 141 mmol/L (137-145); Triglycerides 78 mg/dL (35-150)
== END ==
PROVIDERS: PCP Student in an Organized Health Care Education/Training Program; Referring Provider Internal Medicine Cardiovascular Disease; Visit Provider Internal Medicine Cardiovascular Disease
DX: I49.3 Ventricular premature depolarization (principal); I25.118 Atherosclerotic heart disease of native coronary artery with other forms of angina pectoris
CPT/HCPCS: 36415; 80053; 80061

== ENCOUNTER → 2024-10-27 10:11 | Outpatient (CLI) | payer OTHER, SELFPAY ==
--- NOTE | 2024-10-27 10:12 | DI.RAD.S_ITS ---
PROCEDURE: XR DEXA AXIAL SKELETON INDICATIONS: Bone Density Screening COMPARISON: None. FINDINGS: Lumbar Spine: Bone mineral density 0.901 g/cm2, T score -1.3, consistent with osteopenia. Left Femoral Neck: Bone mineral density 0.671 g/cm2, T score -1.6, consistent with osteopenia. Right Femoral Neck: Bone mineral density 0.646 g/cm2, T score -1.8, consistent with osteopenia. Fracture Risk Calculation (when applicable): 10-year fracture risk of a major osteoporotic fracture 8.1 - 8.7 percent and of a hip fracture 0.9 - 1.1 percent. IMPRESSION: Diffuse osteopenia at the lumbar spine and bilateral femoral necks. Follow-up guidelines as follows: Osteoporosis: Consider a repeat DEXA and Vertebral Fracture Assessment (VFA) exam in 2 years or sooner if medically necessary, to reassess this patient's status. Osteopenia: Consider a repeat DEXA in 2-3 years to reassess this patient's status, or if there is a new clinical indication. Normal: Consider a repeat DEXA in 5 years or sooner, or if there is a new clinical indication. All treatment decisions require clinical judgment and consideration of individual patient factors, including patient preferences, comorbidities, previous drug use, risk factors not captured in the FRAX model (e.g., frailty, falls, vitamin D deficiency, increased bone turnover, interval significant decline in bone density ) and possible under- or over-estimation of fracture risk by FRAX. In addition, the NOF Guide recommends that FDA-approved medical therapies be considered in postmenopausal women and men age >= 50 years with a: * Hip or vertebral (clinical or morphometric) fracture * T-score of <=-2.5 at the spine or hip * Ten-year fracture probability by FRAX of >= 3% for hip fracture or >=20% for major osteoporotic fracture. People with diagnosed cases of osteoporosis or at high risk for fracture should have regular bone mineral density tests. For patients eligible for Medicare, routine testing is allowed once every 2 years. The testing frequency can be increased to one year for patients who have rapidly progressing disease, those who are receiving or discontinuing medical therapy to restore bone mass, or have additional risk factors. Dictated by: Stephen Field M.D. on 10/27/2024 at 21:21 Approved by: Stephen Field M.D. on 10/27/2024 at 21:26
--- NOTE | 2024-10-27 10:12 | DI.MG.S_ITS ---
BILATERAL DIGITAL SCREENING MAMMOGRAM 3D/2D WITH CAD: 10/27/2024 CLINICAL: Routine screening. Family history of breast cancer. Comparison is made to exam dated: 10/26/2023 mammogram - [facility]. The breasts are heterogeneously dense, which may obscure small masses (category c / 51-75% glandular tissue). Current study was also evaluated with a Computer Aided Detection (CAD) system. There is a biopsy clip in the left breast. No significant masses, calcifications, or other findings are seen in either breast. There has been no significant interval change. IMPRESSION: BENIGN There is no mammographic evidence of malignancy. A 1 year screening mammogram is recommended. Based on the Tyrer Cuzick model (a risk assessment model) the patient's lifetime risk is 18.8% and her 10 year risk is 8.7%. According to the ACR, ACS, and NCCN guidelines, an annual breast MRI exam along with mammogram is recommended if the patient's lifetime risk is 20% or greater. This exam was interpreted at Station ID: [id number]. NOTE: For mammograms, a report in lay terms will be sent to the patient. Approximately 15% of breast malignancies will not be visualized mammographically. In the management of a palpable breast mass, a negative mammogram must not discourage biopsy of a clinically suspicious lesion. Electronically Signed By: Rebeka Kamara M.D., Ph.D. lukas/verena:10/28/2024 18:15:38 letter sent: Normal Exam ACR BI-RADS Category 2: Benign
== END ==
PROVIDERS: PCP Student in an Organized Health Care Education/Training Program; Referring Provider Student in an Organized Health Care Education/Training Program; Visit Provider Student in an Organized Health Care Education/Training Program
DX: Z12.31 Encounter for screening mammogram for malignant neoplasm of breast (principal); Z80.3 Family history of malignant neoplasm of breast; R92.333 Mammographic heterogeneous density, bilateral breasts; M85.89 Other specified disorders of bone density and structure, multiple sites
CPT/HCPCS: 77063; 77067; 77080

== ENCOUNTER → 2025-08-17 07:10 | Outpatient (CLI) | payer BC, SELFPAY ==
[2025-08-17 07:42] LABS: Add Manual Diff / Slide Review NO; Hematocrit 42.2 % (36-46); Hemoglobin 14.4 g/dL (12.0-16.0); Lymphocytes Absolute Auto 1900 /uL (1100-4500); Mean Corpuscular HGB Conc 34.0 % (30-36); Mean Corpuscular Hemoglobin 29.1 PG (26-34); Mean Corpuscular Volume 85.7 fL (80-100); Platelet Count 219 X10^3/uL (150-400)
[2025-08-17 08:08] LABS: Alanine Aminotransferase 28 IU/L (<35); Albumin 4.6 g/dL (3.5-5.0); Albumin Globulin Ratio 1.9 (1.0-2.8); Alkaline Phosphatase 73 U/L (38-126); Blood Urea Nitrogen 21 mg/dL (7-17); Calcium 9.6 mg/dL (8.4-10.2); Carbon Dioxide 27 mmol/L (22-32); Chloride 104 mmol/L (98-107); Cholesterol 144 mg/dL (140-199); Estimated Glomerular Filt Rate > 60 mL/min (>60); Globulin 2.4 g/dL (1.7-4.1); Glucose 98 mg/dL (70-99); HDL Cholesterol 83 mg/dL (40-60); HEMOLYSIS < 15 (0-50); Potassium 3.9 mmol/L (3.4-5.1); Sodium 139 mmol/L (137-145); Total Protein 7.0 g/dL (6.3-8.2); Triglycerides 77 mg/dL (35-150)
[2025-08-17 08:23] LABS: Free T3, Triiodothyronine Free 4.73 pg/mL (2.77-5.27); Free T4, Direct Thyroxine 1.16 ng/dL (0.78-2.19)
[2025-08-17 08:37] LABS: Thyroid Stimulating Hormone 1.61 uIU/mL (0.47-4.68)
== END ==
PROVIDERS: PCP Student in an Organized Health Care Education/Training Program; Referring Provider Student in an Organized Health Care Education/Training Program; Visit Provider Student in an Organized Health Care Education/Training Program
DX: R53.83 Other fatigue (principal); I25.2 Old myocardial infarction; Z00.00 Encounter for general adult medical examination without abnormal findings
CPT/HCPCS: 36415; 80053; 80061; 84439; 84443; 84481; 85025